=== PATIENT | male | born 1995 | race Caucasian/White ===

== ENCOUNTER 2016-10-21 01:20 | Emergency (ER) | payer OTHER ==
[~2016-10-21 01:20] MED LIST: BENADRYL; FLEXERIL10 MG PO; MEDROL4 MG/DOSE- PO; TRAMADOL HCL50 M1 PO; ZYRTEC
[2016-10-21 01:32] LABS: BASOPHIL% 0.2 % (0-2.5); EOSINOPHIL# 0.4 X10e3 (0-0.7); EOSINOPHIL% 3.2 % (0.0-7.0); HEMATOCRIT 48.5 % (38.0-50.0); HEMOGLOBIN 16.6 gm/dL (13.0-16.0); LYMPHOCYTE# 1.8 X10e3 (1.0-3.5); LYMPHOCYTE% 13.2 % (17.0-45.0); MEAN CELL VOLUME 87.9 FL (83-96); MEAN CORPUSCULAR HGB CONC 34.1 g/dL (30-36); MEAN PLATELET VOLUME 8.8 FL (6.5-11.5); MONOCYTE# 0.8 X10e3 (0-1.0); MONOCYTE% 5.9 % (3.0-12.0); NEUTROPHIL# 10.6 X10e3 (1.5-7.1); NEUTROPHIL% 77.5 % (40-75); PLATELET COUNT 237 X10e3 (140-420); RED BLOOD COUNT 5.52 X10e (3.90-5.60); RED CELL DISTRIBUTION WIDTH 12.6 % (11.0-15.5); WHITE BLOOD COUNT 13.6 X10e3 (4.0-10.5)
[2016-10-21 01:33] LABS: DIFF IND NO
[2016-10-21 02:19] LABS: ALBUMIN SERUM 5.3 g/dL (3.5-5.0); BILIRUBIN, DIRECT 0.1 mg/dL (0.0-0.2); BILIRUBIN,INDIRECT 1.1 mg/dL (0.0-0.9); BILIRUBIN,TOTAL 1.2 mg/dL (0.2-2.0); BUN/CREATININE RATIO 21.42; CALCIUM SERUM 9.9 mg/dL (8.4-10.2); CREATININE SERUM 0.7 mg/dL (0.6-1.4); POTASSIUM 3.7 mmol/L (3.5-5.1); PROTEIN TOTAL SERUM 8.4 g/dL (6.0-8.3)
[2016-10-21 03:25] LABS: URINE SOURCE CLEAN CATCH
[2016-10-21 03:31] LABS: URINE APPEARANCE CLEAR; URINE BILIRUBIN NEG (NEG); URINE BLOOD NEG (NEG); URINE COLOR YELLOW; URINE GLUCOSE NEG (NEG); URINE KETONE NEG (NEG); URINE LEUKOCYTE ESTERASE NEG (NEG); URINE NITRATE NEG (NEG); URINE PROTEIN NEG (NEG); URINE SPECIFIC GRAVITY 1.033 (1.003-1.035); URINE UROBILINOGEN 0.2 MG/DL (NEG)
[2016-10-21 03:38] LABS: CULTURE INDICATED? NO
== END 2016-10-21 03:47 | disposition home or self-care (01) ==
LOC: CED 01:20
PROVIDERS: Emergency Medicine
DX: R11.2 Nausea with vomiting, unspecified (principal); R19.7 Diarrhea, unspecified; F17.210 Nicotine dependence, cigarettes, uncomplicated
CPT/HCPCS: 36415; 80048; 80076; 81003; 83690; 85025; 96361; 96374; 99284; J2405